=== PATIENT | female | born 1990 | race Caucasian/White ===

== ENCOUNTER 2024-07-06 00:17 | Inpatient (IN) | payer BC, MEDICAID, SELFPAY ==
[2024-07-06] VITALS (33 sets, daily range): BP systolic 101–136; BP diastolic 57–95; PULSE 76–100; RESP 16; TEMP 36.9–37.1; O2SAT 96–100
[2024-07-06] MEDS: LACTATED RINGERS 1000 ML 1,000 ML IV (00:35)
--- NOTE | 2024-07-06 00:53 | PM.OBHPLI ---
OB - H&P: HPI Labor/Induction History of Present Illness Date Seen: 07/06/24 Chief Complaint: labor Chief complaint: Maternity Narrative: The patient is a 34 year old 5 para 3 at 38.3 weeks gestation by LMP, who presents with labor. Contraction began late in evening became more intense overnight. Cervix at time of arrival was 6/90/0. She was margaret every 2-5 minutes. complicated by macrosomia with EFW 4004g at 38w GA. Hemoglobin on admission was 9.6. History of Present Dating criteria: based on LMP care: good care Abnormal ultrasound findings: macrosomia with EFW 4004g at 38w Labs Blood type: A (-) negative (negative antibody) Rubella: immune RPR/VDLR: nonreactive GBS status: negative HBsAG: negative Narrative: - Last Hgb: 11.3 - One Hour Glucose: 91 - Hep C: Nonreactive - HIV: Nonreactive - Gonorrhea: negative - Chlamydia: negative Review of Systems Status of ROS: Reports: 10 or more systems reviewed and unremarkable except as noted in History and below Narrative: Denies headache, visual changes, facial edema, epigastric/RUQ pain, N/V, dysuria, or diarrhea. Meds Home Medications and Allergies Allergies Allergy/AdvReac Type Severity Reaction Status Date / Time codeine Allergy Severe Verified 06/28/23 14:14 OB - H&P: Exam Physical Exam: Vital signs: Pulse BP Pulse Ox 90 133/95 H 100 07/06/24 00:50 07/06/24 00:50 07/06/24 00:48 Narrative: Gen: alert, oriented, NAD Heart: Regular rate and rhythm, normal S1 and S2, no murmurs/rubs/gallops Lungs: clear to auscultation bilaterally without crackles or wheezes Abd: gravid, nontender, soft to palpation between contractions Ext: warm, dry, without edema bilaterally Vaginal exam: 6 cm / 90 % / 0 / vertex Membranes: membranes intact FHT: Baseline: 130 bpm Variability: moderate Acceleration: present Decelerations: early present [place]: Contractions every 4-5 min OB - Problem Based A/P Additional Plan (1) Spontaneous onset of labor: Status: Acute (2) macrosomia: Problem details: 4004g at 38w growth, PPH and shoulder dystocia risk, recommend Pitocin and cytotec at delivery. Status: Acute Plan Admit & anticipate , continuous monitoring, Analgesia: epidural, GBS prophylaxis unnecessary, PPH risk pitocin and cytotec at delivery, shoulder dystocia risk, : RhoGAM Necessary, vaccines not indicated, Planning breast feeding Delivery/Labor/Induction Plan Plan: expectant management
[2024-07-06 01:05] LABS: Basophils Absolute Auto 0.03 K/uL (0.00-0.30); Basophils Percent Auto 0.4 % (0.0-3.0); Eosinophils Absolute Auto 0.04 K/uL (0.00-0.50); Eosinophils Percent Auto 0.5 % (0.0-7.0); Hematocrit 30.2 % (33.0-51.0); Hemoglobin* 9.6 gm/dL (12.0-16.0); Immature Granulocytes Abs Auto 0.03 K/uL (0.00-0.30); Immature Granulocytes Pct Auto 0.4 %; Lymphocytes Absolute Auto 1.84 K/uL (0.90-2.90); Lymphocytes Percent Auto 24.5 % (20-44); Mean Corpuscular HGB Conc 32 gm/dL (32-36); Mean Corpuscular Hemoglobin 26 pg (26-34); Mean Corpuscular Volume 83 fL (80-100); Monocytes Percent Auto 5.7 % (0.0-11.0); Neutrophils Absolute Auto 5.13 K/uL (1.7-7.0); Neutrophils Percent Auto 68.5 % (42.0-72.0); Platelet Count* 111 K/uL (140-440); RDW Coefficient of Variation % 13.9 % (11.5-15.5); Red Blood Count 3.66 m/uL (4.00-5.20)
[2024-07-06] MEDS: ROPIVACAINE 0.2% 100 ml 100 ML 12 MG EPIDURAL (01:07)
[2024-07-06 01:08] LABS: Slide Review Reflex No
[2024-07-06] MEDS: LIDOCAINE 2% (PF) 5 ML VIAL EPIDURAL (01:08)
[2024-07-06] MEDS: ROPIVACAINE 0.2 % PF 10 ML INJ 20 MG EPIDURAL (01:08)
--- NOTE | 2024-07-06 01:31 | PM.ANBPRC ---
PFSH PFSH Social History What is your current living situation?: I presently have a place to live Problems where you live: no known problems In the past 12 months, utilities in danger of being shut off: no In past 12 months, lack of transportation kept you from medical appts, meetings, work, or getting things needed for daily living: no In the past 12 mos, have been you worried that your food would run out before you had money to buy more?: never true In the past 12 mos, the food you bought just didn't last and you didn't have money to buy more?: never true Smoking Status: Former smoker How often does anyone, including family, friends and others, physically hurt you: never How often does anyone, including family, friends and others, insult or talk down to you: never How often does anyone, including family, friends and others, threaten you with harm: never How often does anyone, including family, friends and others, scream or curse at you: never Meds Home Medications and Allergies Home Medications ?Medication ?Instructions ?Recorded ?Confirmed ?Type docosahexaenoic acid 1 cap PO DAILY 07/06/24 07/06/24 History sertraline 50 mg tablet 50 mg PO DAILY 07/06/24 07/06/24 History Results Labs Labs: Laboratory Results - last 24 hr 07/06/24 00:30 WBC 7.50 RBC 3.66 L Hgb 9.6 L Hct 30.2 L MCV 83 MCH 26 MCHC 32 RDW Coeff of Karly 13.9 Plt Count 111 L Neut % (Auto) 68.5 Lymph % (Auto) 24.5 [place] % (Auto) 5.7 Eos % (Auto) 0.5 Baso % (Auto) 0.4 Neut # (Auto) 5.13 Lymph # (Auto) 1.84 [place] # (Auto) 0.40 Eos # (Auto) 0.04 Baso # (Auto) 0.03 Abs Immat Gran (auto) 0.03 Imm/Tot Granulo (auto) 0.4 Vital Signs Vital Signs: Last Vital Signs Pulse 90 07/06/24 01:28 BP 128/62 07/06/24 01:28 Pulse Ox 100 07/06/24 00:58 Weight: 68.039 kg Height: 160.02 cm Anesthesia Procedures Epidural Insertion Patient Location: OB Start Time: 00:25 Stop Time: 01:00 Start Date: 07/06/24 Stop Date: 07/06/24 Reason for Block: procedure for pain Patient Position: sitting Performed By: Minh Machado Preanesthetic Checklist: IV checked, risks and benefits discussed, surgical consent, monitors and equipment checked, pre-op evaluation, timeout performed and anesthesia consent Prep: chlorhexidine gluconate Monitoring: blood pressure monitoring, continuous pulse oximetry and heart rate Approach: midline Vertebral Space: lumbar (1-5) Epidural Technique: HARIS air Needle Type: Tuohy needle Injection Technique: continuous catheter Needle gauge: 17 Needle Length (cm): 10 cm Needle Insertion Depth (cm): 7 Catheter Gauge: 19 Catheter Type: multi-orifice Catheter at skin depth (cm): 13 Test Dose Result: negative and lidocaine 1.5% with epinephrine 1 to 200,000
--- NOTE | 2024-07-06 01:37 | PM.OBPNL ---
Subjective Date Seen: 07/06/24 Narrative: Notified by nursing staff of [facility] at ~0130 with lightly meconium stained fluid. Pediatric contacted for support at time of delivery. Good heart tracings at this time. Objective Vital Signs: Last Vital Signs Pulse 90 07/06/24 01:28 BP 131/82 07/06/24 01:33 Pulse Ox 100 07/06/24 00:58
[2024-07-06] MEDS: OXYTOCIN 30 unit/500 ML in NS 30 UNIT/500 ML BAG 300 UNIT IVPB (02:14)
[2024-07-06] MEDS: lidocaine HCL 2 % JELLY (TOP) STERILE 6 ML TOPICAL (02:17)
--- NOTE | 2024-07-06 02:30 | W.PM.VAGD1_ITS ---
Procedure Delivery date: 07/06/24 Procedure Done: Global Events: Other (macrosomia) Intrapartal Events: Mod/Heavy Meconium Fluid Delivery monitor: none Route of delivery: Laceration description: Perineal - 1st Degree Delivery repair: other (not repaired) Anesthesia type: Epidural Disposition: floor OB Vag Delivery Procedures Additional Procedures Procedure Details: FIRST STAGE Patient is a 34 year-old who was admitted with spontaneous labor. She was dilated to 6 cm upon admission. Labor was not augmented. ROM was spontaneous with meconium stained fluid. The heart rate tracing was Category 1. She became complete. SECOND STAGE She pushed effectively. The baby delivered Position: FRANCK. The delivery was uncomplicated. A nuchal cord x1 was noted at the time of delivery, easily reduced. The umbilical cord was clamped after 30 seconds. The baby was brought to the warmer due to poor respiratory drive, required CPAP x1 minute. THIRD STAGE The placenta was delivered without difficulty and was noted to be intact and with a three vessel cord on examination. IV Pitocin was started after delivery of the placenta. The cervix, vagina and perineum were examined and a non- bleeding superficial 1st degree perineal laceration noted. Bleeding post- delivery was minimal. The fundus was firm to palpation. The baby stayed in room with mother. The mother stayed in the delivery room. Sponge, lap, and needle counts were correct at the end of the procedure.
[2024-07-06] MEDS: IBUPROFEN 600 MG TABLET PO ×4 (03:16→21:42)
[2024-07-06] MEDS: ACETAMINOPHEN 500 MG TABLET 1000 MG PO ×3 (05:23→18:46)
[2024-07-06] MEDS: DOCUSATE SODIUM 100 MG CAPSULE PO (07:40)
[2024-07-06] MEDS: LANOLIN CREAM 1 APPLIC TOPICAL (09:40)
--- NOTE | 2024-07-06 13:40 | PM.ANPOST ---
Post Anesthesia Note Post Anesthesia Note Patient seen: Inpatient Respiratory Status: adequate Cardiovascular Status: adequate Mental Status: baseline Pain: adequate Temp: baseline Anesthetic awareness: N/A Complications: none Follow care: none
[2024-07-07] MEDS: ACETAMINOPHEN 500 MG TABLET 1000 MG PO (00:08)
[2024-07-07 00:09] VITALS: BP 117/75; PULSE 88; RESP 16; TEMP 36.7; O2SAT 97
[2024-07-07 06:42] LABS: Hemoglobin* 8.9 gm/dL (12.0-16.0)
[2024-07-07] MEDS: IBUPROFEN 600 MG TABLET PO (07:33)
[2024-07-07] MEDS: DOCUSATE SODIUM 100 MG CAPSULE PO (07:33)
--- NOTE | 2024-07-07 08:06 | PM.OBDSVD1 ---
DS: Providers Provider Time Seen by Provider: 08:06 Date Seen: 07/07/24 Date of admission: 07/06/24 00:17 Primary care physician: Efrain Birch MD Admitting Clinician: Adry Presley MD Attending Physician on discharge: Jewell Falcon MD Date of Discharge: 07/07/24 DS: Diagnosis Discharge Diagnosis (1) (normal spontaneous vaginal delivery): Status: Acute Exam Const: Vital Signs, click to edit/add: Vital Signs - 24 hr 07/06/24 14:12 07/06/24 16:10 07/06/24 20:00 Temperature 98.8 F 98.8 F 98.4 F Pulse Rate [Pulse Oximeter] 79 78 88 Respiratory Rate 16 16 16 Blood Pressure [Ri ght Arm] 120/79 105/68 113/75 Pulse Oximetry 97 96 97 Oxygen Delivery Me thod Room Air Room Air Room Air 07/07/24 00:09 Temperature 98.1 F Pulse Rate [Pulse Oximeter] 88 Respiratory Rate 16 Blood Pressure [Ri ght Arm] 117/75 Pulse Oximetry 97 Oxygen Delivery Me thod Room Air Documenting provider has reviewed patient's vital signs: yes Common normals: no apparent distress, oriented x3 and alert Orientation/consciousness: Yes awake and Yes oriented to person HENMT: Common normals: normocephalic Head and scalp: normocephalic Eye: Common normals: EOMs intact bilaterally and conjunctivae normal Conjunctiva: conjunctiva(e) normal Neck & C-Spine: Common normals: full ROM Chest: Common normals: inspection of chest normal Resp: Common normals: normal respiratory effort and clear to auscultation bilaterally Auscultation: clear to auscultation bilaterally Cardio: Common normals: regular rate, regular rhythm, S1 normal heart sound and S2 normal heart sound Rate: regular rate Rhythm: regular rhythm Heart sounds: S1 normal and S2 normal : OB/external & speculum: Yes deferred Uterus: U/2 and firm Extremity: Common normals: normal to inspection (trace edema bilaterally, non tender) Neuro: Common normals: oriented x3 Sensorium/orientation: awake, alert and oriented to person OB - DS: Summary Hospital Course Hospital Course: The patient is a 34 year old G 5 P 3 at 38.3 weeks gestation that was admitted to the Center on 07/06/24 for active labor. She had an uncomplicated vaginal delivery. She delivered a viable male . She is breast feeding. the patient has done well. Peripartum Data delivery method: Vaginal complications: none Sl[place] Gender: Male Discharge Plan: Home Status at Discharge Functional status at discharge: independent ambulation Overall status at discharge: patient is back to baseline Time Spent with Patient Time attestation: Total time spent providing and/or coordinating discharge services: Time spent: Less than 30 minutes Discharge Plan Discharge Disposition: Home, Self-Care Date of Admission: 07/06/24 00:17 Attending Provider on Discharge: Jewell Falcon Primary Care Provider: Efrain Birch Condition: Stable Anticipated Discharge Date/Time: 07/07/24 08:03 Discharge Medications: Continued sertraline 50 mg tablet 50 mg PO DAILY docosahexaenoic acid [ DHA] 1 cap PO DAILY Discharge Orders: Discharge Order (Routine); Ordered 07/07/24 Ordered By: Jewell Falcon Patient Education: OB Vaginal/Breast Feeding Activity Level: No Restrictions and Activity as Tolerated Activity Detail: Pelvic rest x 6 weeks, nothing in the vagina Discharge Diet: Regular Follow Up Appointments: Efrain Birch MD [Primary Care Provider] - Forms: [employer] Info Instructions Discharge Comments: Please schedule [address] Keene
[2024-07-07 09:17] VITALS: BP 109/75; PULSE 87; RESP 16; TEMP 36.6; O2SAT 97
[2024-07-07 18:18] LABS: Rapid Plasma Reagin (RPR) Non Reactive (Non Reactive)
== END 2024-07-07 12:57 | disposition home or self-care (01) | DRG 560 ==
LOC: OB OUT 00:30 → OB 00:30
PROVIDERS: Admitting Provider Student in an Organized Health Care Education/Training Program; PCP Family Medicine; Visit Provider Student in an Organized Health Care Education/Training Program
DX: O36.63X0 Maternal care for excessive fetal growth, third trimester, not applicable or unspecified (principal); O77.0 Labor and delivery complicated by meconium in amniotic fluid; O70.0 First degree perineal laceration during delivery; O26.893 Other specified pregnancy related conditions, third trimester; Z67.11 Type A blood, Rh negative; Z3A.38 38 weeks gestation of pregnancy; Z37.0 Single live birth
CPT/HCPCS: 01967; 36415; 85018; 85025; 86592; A9270; J2371; J2795; J7120

== ENCOUNTER 2024-07-24 09:16 | Outpatient (CLI) | payer BC, MEDICAID, SELFPAY ==
--- NOTE | 2024-07-24 11:28 | W.PM.LAC.MC ---
Consult Note - Mom Date of Visit Date of visit: 07/24/24 search engine optimization consultant: Yana Medina Visit Code: Visit Patient's Information Phone number: [phone] : 5 Para: 4 Allergies No Known Drug Allergies Allergy (Verified 07/06/24 01:38) Mother's Medical History: Medical History (Updated 07/13/24 @ 00:01 by Background Daemon) macrosomia Spontaneous onset of labor Delivery Information Delivery type: Vaginal Weeks Gestation: 38w 3d Weight: 3.785 kg Discharge Weight: 3.704 kg Baby's Information Medications: none Baby's Age at Visit: 18 days Baby's Provider or Clinic: [facility] Jaundice: No Reason for Consult Reason for Consult: Mom with mastitis, treated x2 and now feels like it's coming back. Breast painful, erythematous, very painful latch. Past Experience Past Experience: Yes Current Frequency of Day Feedings: every 1.5-3 hours Frequency of Night Feedings: every 3-4 hours Both Breasts: No (not currently with mastitis/breast pain) Suck: strong Latch: starts out wide, deep; slides to the end of the nipple Length of Time: 10-20 minutes/side Goals: close to a year Pumping Pumping: Yes (pumping left side due to pain with nursing) Quantity Pumped: 1-4 oz, every 2-3 hours Supplementing EMB Supplement: Yes (a few times, takes 2-3 oz/bottle feeding) Formula Supplement: No Baby Elimination Number of Wet Diapers a Day: 6+ a day Number of BM a Day: 6+ a day, stools are yellow, seedy Breast/Nipple Condition Breast Information: Breasts are symmetrical with rounded lower quadrants, intramammary distance is less than 1.5 inches. No erythema. Nipples are supple, everted prior to feeding. Left breast with wedge shape of erythema at the inner upper quadrant, warm and tender to touch, firmness to palpation noted at tender spot to mom. right breast without pain or erythema. Interventions for Engorgement: Warm Pack (for letdown while pumping) and Pump Maternal Nipple Condition - Left: Common Nipple and Other (right nipple slightly red and flaky compared to left nipple) Maternal Nipple Condition - Right: Common Nipple Sore Nipples: Yes (left significantly more painful than right) Interventions for Sore Nipples: Other (Silverettes, not helping at the moment) Onsite Pre-Feed weight: 4.222 kg Post-Feed weight: 4.284 kg Milk Transferred (mL): 62 (Baby up 253gm in 5 days, average of 50g/day) Pre-Nursing Left Nipple: Within Normal Limits Pre-Nursing Right Nipple: Redness (slight) Post-Nursing Right Nipple: Within Normal Limits (mom reports minimal pain but nipple very creased/lipstick look as baby comes off) Assessments/Interventions Assessments/Interventions: Painful latch: Worked with mom to use asymmetrical latch technique for a wider, deeper latch and mom reports increased comfort with this. Reviewed in both football and cross cradle hold. Mom able to achieve initially, as baby moves around he comes off and resituates himself. This is evident by the creased nipple observed after feeding. Discussed with mom needing to stay very attentive to his positioning so he's not able to pull himself off. His squirming occurred at the time of her letdown so may need to allow him to come off, let the milk drip and then relatch after initial force of letdown has passed. Mom had just pumped left side so did not nurse. Mastitis Discussed normals of ; milk coming in, regulation of supply, use of pump to relieve fullness if needed. Concerned mom is fighting oversupply and needs to downregulate milk; pumping 1-4 oz out of left breast; baby taking 2-3 oz/feeding. If not able to nurse left side, pump 10-15 minutes or 3 oz maximum to remove milk to help with mastitis but not tell body to make more and more milk. Ok to continue with warm pack as needed for letdown; recommend cool packs after feeding to help breast congestion and inflammation, especially on the left side. . Also discussed lymphatic drainage (handout given) to help increase flow of milk, 2-3 times a day for 10 min ea if able. Ibuprofen for mom to help with fever, swelling and pain. Mom to call her provider ([facility]) to discuss antibiotic coverage for mastitis; has had 2 courses of antibiotics for 5 days each. Most recent was dicloxacillin four times a day for 5 days. Mom reports hard to remember to take QID and challenging around the food limitations. Will discuss other options. Mom to rest as able to allow body to heal, fluids for hydration. Mastitis handout (SABINA) given and reviewed; discussed use of sunflower lecithin to help milk ducts clear more easily for 4-6 weeks while breast is healing. Thrush Nipple care reviewed as well. Concerned about thrush. Mom to use clotrimazole after each feeding and talk with baby's provider for his mouth. Follow up: To call with ongoing questions/concerns. Time regi apple reviewing chart and face to face with mom and baby: 75 minutes Meds Home Medications and Allergies Home Medications ?Medication ?Instructions ?Recorded ?Confirmed ?Type docosahexaenoic acid 1 cap PO DAILY 07/06/24 07/24/24 History sertraline 50 mg tablet 50 mg PO DAILY 07/06/24 07/24/24 History Allergies Allergy/AdvReac Type Severity Reaction Status Date / Time No Known Drug Allergies Allergy Verified 07/06/24 01:38
== END 2024-07-24 09:17 | disposition home or self-care (01) ==
PROVIDERS: PCP Family Medicine; Visit Provider Obstetrics & Gynecology
DX: Z39.1 Encounter for care and examination of lactating mother (principal)
CPT/HCPCS: G0463